=== PATIENT | female | born 1940 | race Caucasian/White ===

== ENCOUNTER 2016-05-04 19:34 | Emergency (ER) | payer OTHER ==
[~2016-05-04] VITALS: Ht 165.1 cm; Wt 96.0 kg
[~2016-05-04 19:34] MED LIST: ACETAMINOPHEN1 EAC4 PO; CARDIZEM60 MG PO; CITALOPRAM HBR10 MG PO; FLECAINIDE ACET50 MG PO; K-DUR20 MEQ PO; LEVOTHYROXINE88 MCG PO; LO-DOSE ASPIRIN81 M1 PO; PRAVASTATIN SOD40 MG PO; XARELTO20 MG PO
[2016-05-04 20:12] LABS: HEMATOCRIT 40.3 % (36.0-46.0); MCH 29.6 PG (29.0-34.0); MCHC 33.3 G/DL (30.0-36.0); MEAN PLAT.VOLUME 10.5 uM^3 (9.5-12.4); PLATELET COUNT 299 K/uL (156-360); RBC DIS.WIDTH-SD 41.8 % (39-53); RED BLOOD COUNT 4.53 M/uL (3.80-5.20)
[2016-05-04 20:20] LABS: ADD MIUA? YES; BILIRUBIN NEGATIVE; BLOOD LARGE; GLUCOSE (STRIP) NEGATIVE; KETONES NEGATIVE; LEUKOCYTES MODERATE; NITRITE POSITIVE; PH, URINE 5.5 (5-8); PROTEIN (STRIP) 30; SPECIFIC GRAVITY 1.023 (1.000-1.030); UROBILINOGEN 0.2 MG/DL (0.2-1.0)
[2016-05-04 20:24] LABS: COLOR DK YELLOW ((YELLOW))
[2016-05-04 20:26] LABS: CHLORIDE 110 mEq/L (99-109); POTASSIUM 4.3 mEq/L (3.7-5.4); SODIUM 142 mEq/L (136-147)
[2016-05-04 20:28] LABS: GLUCOSE 98 mg/dL (70-99)
[2016-05-04 20:30] LABS: ANION GAP 8 MEQ/L (2-14); TOTAL BILIRUBIN 0.3 mg/dL (0.0-1.0)
[2016-05-04 20:32] LABS: ALKALINE PHOSPHATASE 91 IU/L (3-129); GFR ESTIMATE (CALCULATED) > 59 mL/min/
[2016-05-04 20:33] LABS: UREA NITROGEN (BUN) 19 mg/dL (9-23)
[2016-05-04 20:34] LABS: DIRECT BILIRUBIN 0.1 mg/dL (0.0-0.3)
[2016-05-04 20:35] LABS: LIPASE 43 U/L (1.0-51.0)
[2016-05-04 20:38] LABS: INTER. NORMALIZED RATIO 1.1; PROTHROMBIN TIME 11.6 (9.2-11.2); PTT 30.3 (25-32)
[2016-05-04 20:42] LABS: RED BLOOD CELLS TNTC /HPF (0-5)
[2016-05-04 20:43] LABS: BACTERIA 3+ /HPF; CASTS NONE SEEN /LPF; CRYSTALS NONE SEEN; EPITHELIAL CELLS 1+ /HPF; MUCUS RARE /LPF; OTHER RENAL CELLS; UCUL ADDED? YES; WHITE BLOOD CELLS 20-30 /HPF (0-5)
[2016-05-04] MEDS ORDERED: CIPRO500 MG PO (21:29)
[2016-05-04 22:05] VITALS: BP 140/82
== END 2016-05-04 22:06 | disposition home or self-care (01) ==
LOC: EME 19:34
PROVIDERS: Physician Assistant
DX: N39.0 Urinary tract infection, site not specified (principal); R31.9 Hematuria, unspecified; J44.9 Chronic obstructive pulmonary disease, unspecified; E78.5 Hyperlipidemia, unspecified; E03.9 Hypothyroidism, unspecified; Z79.82 Long term (current) use of aspirin
CPT/HCPCS: 74176; 80048; 80076; 81003; 83690; 85027; 85610; 85730; 87077; 87086; 87186; 99281; 99285; J1885; J7030

== ENCOUNTER 2017-08-12 19:51 | Emergency (ER) | payer OTHER, BC ==
[~2017-08-12] VITALS: Ht 154.9 cm; Wt 97.7 kg
[~2017-08-12 19:51] MED LIST changes: +CIPRO500 MG PO
[2017-08-12 20:33] LABS: HEMATOCRIT 36.4 % (36.0-46.0); HEMOGLOBIN 11.7 G/DL (11.9-15.5); MCH 25.8 PG (29.0-34.0); MCHC 32.1 G/DL (30.0-36.0); MCV 80.2 FL (83-99); PLATELET COUNT 333 K/uL (156-360); RBC DIS.WIDTH-CV 15.8 % (11.8-14.6); RBC DIS.WIDTH-SD 45.8 % (39-53); RED BLOOD COUNT 4.54 M/uL (3.80-5.20); WHITE BLOOD COUNT 8.1 K/uL (4.1-10.2)
[2017-08-12 20:53] LABS: CHLORIDE 108 mEq/L (99-109); POTASSIUM 3.8 mEq/L (3.7-5.4); SODIUM 140 mEq/L (136-147)
[2017-08-12 20:55] LABS: GLUCOSE 140 mg/dL (70-99)
[2017-08-12 20:59] LABS: CREATININE 0.9 mg/dL (0.6-1.3); GFR ESTIMATE (CALCULATED) > 59 mL/min/; UREA NITROGEN (BUN) 14 mg/dL (9-23)
[2017-08-12 22:42] LABS: INTER. NORMALIZED RATIO 1.3
[2017-08-12] MEDS ORDERED: AFRIN,GENASAL D15 ML BOTH NARES (23:08)
[2017-08-12] MEDS ORDERED: SUDAFED PE PRE1 EAC1 PO (23:08)
[2017-08-12 23:38] VITALS: BP 151/100
== END 2017-08-12 23:40 | disposition home or self-care (01) ==
LOC: EME 19:51
PROVIDERS: Emergency Medicine
DX: R04.0 Epistaxis (principal); R09.81 Nasal congestion; I10 Essential (primary) hypertension; Z79.01 Long term (current) use of anticoagulants; R51 Headache; K44.9 Diaphragmatic hernia without obstruction or gangrene; J44.9 Chronic obstructive pulmonary disease, unspecified; E78.5 Hyperlipidemia, unspecified; E03.9 Hypothyroidism, unspecified; F41.9 Anxiety disorder, unspecified; Z79.82 Long term (current) use of aspirin; Z90.49 Acquired absence of other specified parts of digestive tract; Z90.710 Acquired absence of both cervix and uterus; Z85.9 Personal history of malignant neoplasm, unspecified; Z88.2 Allergy status to sulfonamides; Z88.5 Allergy status to narcotic agent; Z91.041 Radiographic dye allergy status; Z91.048 Other nonmedicinal substance allergy status
CPT/HCPCS: 71046; 80048; 85027; 85610; 85730; 99281; 99284

== ENCOUNTER 2017-09-06 22:52 | Emergency (ER) | payer OTHER, BC ==
[~2017-09-06] VITALS: Ht 154.9 cm; Wt 97.6 kg
[~2017-09-06 22:52] MED LIST changes: +AFRIN,GENASAL D15 ML BOTH NARES; +SUDAFED PE PRE1 EAC1 PO
[2017-09-06] MEDS ORDERED: AUGMENTIN875 MG PO ×2 (23:24→23:25)
[2017-09-06 23:50] VITALS: BP 178/99
== END 2017-09-07 00:03 | disposition home or self-care (01) ==
LOC: EME → EDBD 22:52 → EME 22:52
PROC: 2Y41X5Z Packing of Nasal Region using Packing Material (ICD-10-PCS; principal; 2017-09-06)
DX: R04.0 Epistaxis (principal); R06.7 Sneezing; Z79.01 Long term (current) use of anticoagulants; Z79.82 Long term (current) use of aspirin; I48.91 Unspecified atrial fibrillation; E78.5 Hyperlipidemia, unspecified; E03.9 Hypothyroidism, unspecified; Z86.73 Personal history of transient ischemic attack (TIA), and cerebral infarction without residual deficits; Z90.49 Acquired absence of other specified parts of digestive tract; Z90.710 Acquired absence of both cervix and uterus; Z88.2 Allergy status to sulfonamides
CPT/HCPCS: 99281; 99284